=== PATIENT | male | born 1950 | race African-American/Black ===

== ENCOUNTER 2017-05-19 10:21 | Outpatient (CLI) | payer BC | END 2017-05-19 23:59 | disposition home or self-care (01) | LOC: RAD 10:21 | PROVIDERS: ATTEND Internal Medicine | DX: M25.541 Pain in joints of right hand (principal); M25.531 Pain in right wrist; W19.XXXD Unspecified fall, subsequent encounter | CPT/HCPCS: 73100-TC; 73120-TC ==

== ENCOUNTER 2017-07-27 11:32 | Outpatient (CLI) | payer BC ==
[2017-07-28 12:15] LABS: RUBELLA ANTIBODIES, IGG 8.97 index (Immune >0.99)
[2017-07-28 15:11] LABS: *RUBEOLA AB (IGG) >300.0 AU/mL (Immune >29.9); VARICELLA ZOSTER IgG 3107 index (Immune >165)
== END 2017-07-27 23:59 | disposition home or self-care (01) ==
LOC: LAB 11:32
PROVIDERS: ATTEND Internal Medicine
DX: Z71.89 Other specified counseling (principal)
CPT/HCPCS: 36415; 86706; 86735; 86762; 86765; 86787